=== PATIENT | female | born 1970 | race Caucasian/White ===

== ENCOUNTER 2017-10-12 15:13 | Emergency (ER) | payer OTHER ==
[~2017-10-12] VITALS: Ht 170.2 cm; Wt 54.4 kg
[~2017-10-12 15:13] MED LIST: AZITHROMYCIN 2250 MG PO; CLONIDINE0.1 PO; COZAAR 50 MG TA50 M2 PO; CYMBALTA60 MG PO; FLEXERIL; FLEXERIL PO; HYDROCODONE-AP1 EAC6 PO; IBUPROFEN 800800 M1 PO; LYRICA 75 MG CA75 MG PO; MEDROLDOSEPACK PO; NEURONTIN 300300 M1 PO; PROAIR HFA8.5 GM INH; ROBITUSSIN-COU237 ML PO; TYLENOL325 MG PO; VENTOLIN HFA 1818 GM INH; VICODIN 5-3001 EACH; ZPAK PO
[2017-10-12] MEDS ORDERED: ZPAK PO (16:34)
[2017-10-12] MEDS ORDERED: GUAIFENESIN-CO118 ML PO (16:34)
[2017-10-12] MEDS ORDERED: PREDNISONE 20 M20 MG PO (16:34)
[2017-10-12 17:03] VITALS: BP 143/93
== END 2017-10-12 17:04 | disposition home or self-care (01) ==
LOC: M.ERS 15:13
DX: J40 Bronchitis, not specified as acute or chronic (principal); R07.81 Pleurodynia; I10 Essential (primary) hypertension; M79.7 Fibromyalgia; F32.9 Major depressive disorder, single episode, unspecified; F17.210 Nicotine dependence, cigarettes, uncomplicated

== ENCOUNTER 2018-04-06 13:45 | Emergency (ER) | payer MEDICAID ==
[~2018-04-06] VITALS: Ht 170.2 cm; Wt 55.8 kg
[~2018-04-06 13:45] MED LIST changes: +GUAIFENESIN-CO118 ML PO; +PREDNISONE 20 M20 MG PO
[2018-04-06 14:30] LABS: ABSOLUTE BASOPHILS 0.1 thou/uL (0.0-0.2); ABSOLUTE EOSINOPHILS 0.4 thou/uL (0.0-0.7); ABSOLUTE LYMPHOCYTES 2.5 thou/uL (0.8-5.3); ABSOLUTE MONOCYTES 0.6 thou/uL (0.0-1.2); ABSOLUTE NEUTROPHILS 6.5 thou/uL (1.6-8.1); BASOPHILS 1.4 %; EOSINOPHILS 3.8 %; HEMATOCRIT 45.1 % (37.0-47.0); HEMOGLOBIN 15.3 gm/dL (12.0-15.0); LYMPHOCYTES 24.2 %; MCH 29.9 pg (26.0-34.0); MCHC 33.9 g/dL (28.0-37.0); MCV 88.1 fL (80.0-100.0); MONOCYTES 6.4 %; MPV 9.8 fl. (7.2-11.1); NUCLEATED RBCS 0 /100WBC; PLATELET COUNT* 271 thou/uL (150-400); POLYS 64.2 %; RBC 5.12 mil/uL (4.20-5.00); RDW-CV 13.7 % (10.5-14.5); WBC 10.1 thou/uL (4.0-11.0)
[2018-04-06 14:36] LABS: ANION GAP 9 mmol/L (7-16); BUN 10 mg/dL (7-18); CALCIUM 9.4 mg/dL (8.5-10.1); CHLORIDE 104 mmol/L (98-107); CO2 26 mmol/L (21-32); CREATININE 0.8 mg/dL (0.6-1.3); GLUCOSE 104 mg/dL (70-99); POTASSIUM 3.9 mmol/L (3.5-5.1); SODIUM 139 mmol/L (136-145)
[2018-04-06 14:48] LABS: NT-PRO BRAIN NAT PEPTIDE 146 pg/mL (<300); TROPONIN-I LEVEL <0.06 ng/mL (<0.06)
[2018-04-06] MEDS ORDERED: TESSALON PERLE100 MG PO (15:14)
[2018-04-06] MEDS ORDERED: DOXYCYCLINE 10100 MG PO (15:14)
[2018-04-06] MEDS ORDERED: VENTOLIN HFA 1818 GM INH (15:14)
[2018-04-06] MEDS ORDERED: PREDNISONE 10 M10 MG PO (15:14)
[2018-04-06 15:24] VITALS: BP 107/81
--- NOTE | 2018-04-07 10:36 | EKG ---
[place] [address] ELECTROCARDIOGRAM REPORT Name: FIELDS DANAECLARA Lawler Room: [facility]#: [id number] Admission: 04/06/18 Attend Phys: Discharge: 04/06/18 Date of : 70 Report #: [id number] THIS REPORT FOR: //name// [facility] ED Test Date: 2018-04-06 Test Time: 14:19:56 Pat Name: CLARA GEE Department: Room: Gender: F Title I Paraprofessional: Serena CARDENAS : 1970 Requested By: Brandi Renner Order Number: [id number] MD: Gael Cristobal Measurements Intervals [place] Rate: 97 P: 76 NV: 198 QRS: 77 QRSD: 91 T: 63 QT: 355 QTc: 451 Interpretive Statements Sinus rhythm Borderline prolonged NV interval Consider right atrial enlargement Compared to ECG 07/02/2014 21:56:11 No significant changes Electronically Signed On 04-07-2018 10:36:22 CDT by Gael Cristobal [email or web address] <ELECTRONICALLY SIGNED> By: Gael Cristobal MD, [facility] 04/07/18 1036 1419 18 Gael Cristobal MD, FAC /EPI
== END 2018-04-06 15:24 | disposition home or self-care (01) ==
LOC: M.ERS 13:45
PROVIDERS: Physician Assistant
DX: J44.1 Chronic obstructive pulmonary disease with (acute) exacerbation (principal); J32.9 Chronic sinusitis, unspecified; I10 Essential (primary) hypertension; M79.7 Fibromyalgia; F32.9 Major depressive disorder, single episode, unspecified; Z87.01 Personal history of pneumonia (recurrent); F17.210 Nicotine dependence, cigarettes, uncomplicated

== ENCOUNTER 2020-08-07 20:07 | Emergency (ER) | payer MEDICAID ==
[~2020-08-07] VITALS: Ht 170.2 cm; Wt 52.2 kg
[~2020-08-07 20:07] MED LIST changes: +DOXYCYCLINE 10100 MG PO; +PREDNISONE 10 M10 MG PO; +TESSALON PERLE100 MG PO
[2020-08-07] MEDS ORDERED: NEURONTIN 400M400 M2 (20:24)
[2020-08-07] MEDS ORDERED: TRAZODONE HCL100 MG PO (20:25)
[2020-08-07] MEDS ORDERED: CLEOCIN HCL150 MG PO (20:58)
[2020-08-07] MEDS ORDERED: APAP W/CODEINE1 TA2 PO (20:58)
[2020-08-07] MEDS ORDERED: LIDOCAINE VISC100 ML SWISH&SPIT (20:58)
[2020-08-07 21:22] VITALS: BP 145/102
== END 2020-08-07 21:22 | disposition home or self-care (01) ==
LOC: M.ERS 20:07
DX: K04.7 Periapical abscess without sinus (principal); F17.210 Nicotine dependence, cigarettes, uncomplicated; I10 Essential (primary) hypertension; M79.7 Fibromyalgia; Z98.51 Tubal ligation status; Z79.899 Other long term (current) drug therapy